=== PATIENT | male | born 1945 | race Caucasian/White ===

== ENCOUNTER 2023-01-27 11:56 | Inpatient (IN) | payer OTHER ==
[~2023-01-27] VITALS: Ht 180.3 cm; Wt 95.3 kg
[2023-01-27] MEDS ORDERED: KETOROLAC TROMETHAMINE 30 MG/ML VIAL ONE (12:25)
[2023-01-27] MEDS ORDERED: SEVOFLURANE INHAL SOLN 250 ML PEN BTL ONE (12:25)
[2023-01-27] MEDS ORDERED: LIDOCAINE HCL 2% LOCAL INJ 5 ML SDV VIAL INJ ONE (12:25)
[2023-01-27] MEDS ORDERED: PROPOFOL IV EMULSION 10 MG/ML 20 ML VIAL ONE (12:25)
[2023-01-27] MEDS ORDERED: ONDANSETRON HCL INJ 2MG/ML 2ML 2 MG/ML VIAL ONE (12:25)
[2023-01-27] MEDS ORDERED: POVIDONE IODINE 0.05% 0.05 % ML PO ONE (12:25)
[2023-01-27] MEDS ORDERED: ONDANSETRON HCL INJ 2MG/ML 2ML 2 MG/ML VIAL IV STA (12:30)
[2023-01-27] MEDS ORDERED: Morphine 4mg INJECTION 4 MG/ML INJ IV ONE (12:30)
[2023-01-27] MEDS ORDERED: FENTANYL CITRATE/PF 100MCG/2 ML INJ ONE (12:33)
[2023-01-27] MEDS ORDERED: MIDAZOLAM HCL 2 MG/2 ML VIAL ONE (12:33)
[2023-01-27 12:43] LABS: BASOPHILS % 0.1 % (0.0-1.0); HEMATOCRIT 41.8 % (38.2-49.6); LYMPHOCYTES # (AUTO) 0.6 (1.0-3.2); LYMPHOCYTES % 5.4 % (18.0-39.1); MEAN CORPUSCULAR HEMOGLOBIN 30.1 pg (28-32); MEAN CORPUSCULAR HGB CONC 33.5 g/dL (31-35); MEAN CORPUSCULAR VOLUME 89.9 fL (81-99); MONOCYTES # (AUTO) 0.8 (0.2-0.8); MONOCYTES % 7.1 % (4.4-11.3); NEUTROPHILS # (AUTO) 10.2 (2.1-6.9); NEUTROPHILS % 86.9 % (38.7-80.0); PLATELET COUNT 223 x10e3/uL (140-360); RED BLOOD COUNT 4.65 x10e6/uL (4.3-5.7); RED CELL DISTRIBUTION WIDTH 14.6 % (11.7-14.4)
[2023-01-27 13:02] LABS: INR 1.01; PROTHROMBIN TIME 13.8 seconds (11.9-14.5)
[2023-01-27 13:03] LABS: PARTIAL THROMBOPLASTIN TIME 27.6 seconds (23.8-35.5)
[2023-01-27 13:12] LABS: ALBUMIN 3.9 g/dL (3.5-5.0); ANION GAP 16.5 mmol/L (8-16); CALCIUM 9.8 mg/dL (8.4-10.2); CREATININE, SERUM 1.02 mg/dL (0.72-1.25); POTASSIUM 3.5 mmol/L (3.5-5.1)
[2023-01-27 13:32] LABS: BODY FLUID APPEARANCE CLOUDY; BODY FLUID COLOR YELLOW; BODY FLUID TYPE SYNOVIAL
[2023-01-27 13:35] LABS: RBC,BODY FLUID 21000 cells/uL; WBC,BODY FLUID 73615 cells/uL
[2023-01-27 14:44] LABS: LYMPHOCYTES,BODY FLUID 5 %; MONO/MACROPHG,BODY FLUID 7 %; NEUTROPHILS,BODY FLUID 88 %
[2023-01-27] MEDS ORDERED: Vancomycin IV 1 GM VIAL ONE (16:56)
[2023-01-27] MEDS: SODIUM CHLORIDE 0.9% 1000ML 1,000 ML IV SCH (18:38)
[2023-01-27 20:00] VITALS: BP 161/84; PULSE 120; RESP 20; TEMP 102.6; O2SAT 99
[2023-01-27] MEDS ORDERED: METFORMIN HCL500 MG PO (20:10)
[2023-01-27] MEDS ORDERED: MELOXICAM7.5 MG PO (20:11)
[2023-01-27] MEDS ORDERED: PRAVASTATIN SOD40 MG (20:11)
[2023-01-27 20:35] VITALS: BP 161/84; PULSE 120; RESP 20; TEMP 102.6; O2SAT 99
[2023-01-27] MEDS ORDERED: HYDROCODONE/APAP 5MG-325MG TAB PO PRN (23:30)
[2023-01-27] MEDS ORDERED: Vancomycin IV 1 GM in SODIUM CHLORIDE 0.9% 250ML 250 ML IV SCH (23:30)
[2023-01-27] MEDS ORDERED: D5.45%NS/KCL 20MEQ 1,000 ML IV SCH (23:30)
[2023-01-27 23:46] LABS: BODY FLUID TYPE SYNOVIAL
[2023-01-27 23:47] LABS: BODY FLUID APPEARANCE TURBID; BODY FLUID COLOR RED; RBC,BODY FLUID 120000 cells/uL; WBC,BODY FLUID 132863 cells/uL
[2023-01-28] VITALS (12 sets, daily range): BP systolic 119–154; BP diastolic 15–90; PULSE 65–111; RESP 16–20; TEMP 97.9–102; O2SAT 96–100
[2023-01-28 00:31] LABS: LYMPHOCYTES,BODY FLUID 3 %; NEUTROPHILS,BODY FLUID 88 %
[2023-01-28 00:40] LABS: MONO/MACROPHG,BODY FLUID 9 %
[2023-01-28] MEDS ORDERED: HYDRALAZINE HCL 20 MG/ML VIAL IV PRN (01:00)
[2023-01-28] MEDS ORDERED: SIMETHICONE 80 MG CHEW PO PRN (01:00)
[2023-01-28] MEDS ORDERED: LIDOCAINE 4% PATCH TP PRN (01:00)
[2023-01-28] MEDS ORDERED: POTASSIUM CHLORIDE 20 MEQ TAB CR PO PRN (01:00)
[2023-01-28] MEDS ORDERED: BENZONATATE 100 MG CAP PO PRN (01:00)
[2023-01-28] MEDS ORDERED: DIPHENHYDRAMINE HCL 25 MG CAP PO PRN (01:00)
[2023-01-28] MEDS ORDERED: DEXTROSE 50% SYRINGE 50 ML IV PRN ×2 (01:00→01:15)
[2023-01-28] MEDS ORDERED: MELATONIN 5 MG TABLET PO PRN (01:00)
[2023-01-28] MEDS ORDERED: ALBUTEROL SULF 0.083% NEB SOLN 3 ML NEB NEB PRN (01:15)
[2023-01-28] MEDS ORDERED: IPRATROPIUM BROMIDE 0.02% 2.5 ML NEB NEB PRN (01:15)
[2023-01-28] MEDS: SODIUM CHLORIDE 0.9% 1000ML 1,000 ML IV SCH ×2 (01:20→07:30)
[2023-01-28] MEDS: Morphine 4mg INJECTION 4 MG/ML INJ IV PRN (01:20)
[2023-01-28] MEDS ORDERED: Vancomycin IV 1 GM in SODIUM CHLORIDE 0.9% 250ML 250 ML IV SCH (01:30)
[2023-01-28 06:50] LABS: BASOPHILS % 0.1 % (0.0-1.0); HEMATOCRIT 35.8 % (38.2-49.6); HEMOGLOBIN 11.7 g/dL (14.0-18.0); LYMPHOCYTES # (AUTO) 0.4 (1.0-3.2); LYMPHOCYTES % 2.8 % (18.0-39.1); MEAN CORPUSCULAR HGB CONC 32.7 g/dL (31-35); MEAN CORPUSCULAR VOLUME 91.8 fL (81-99); MONOCYTES # (AUTO) 0.5 (0.2-0.8); MONOCYTES % 3.8 % (4.4-11.3); NEUTROPHILS # (AUTO) 13.2 (2.1-6.9); NEUTROPHILS % 92.7 % (38.7-80.0); PLATELET COUNT 155 x10e3/uL (140-360); RED CELL DISTRIBUTION WIDTH 15.3 % (11.7-14.4)
[2023-01-28 07:26] LABS: ALBUMIN 2.9 g/dL (3.5-5.0); ALBUMIN/GLOBULIN RATIO 0.9 (0.8-2.0); ANION GAP 14.9 mmol/L (8-16); CALCIUM 8.4 mg/dL (8.4-10.2); CREATININE, SERUM 1.35 mg/dL (0.72-1.25); POTASSIUM 3.9 mmol/L (3.5-5.1)
[2023-01-28] MEDS: ONDANSETRON HCL INJ 2MG/ML 2ML 2 MG/ML VIAL IV PRN (07:53)
[2023-01-28] MEDS: INSULIN LISPRO 100 UNIT/1 ML 3ML VIAL SQ SCH ×4 (08:00→21:28)
[2023-01-28] MEDS: PANTOPRAZOLE SOD 40 MG TABEC PO SCH (08:22)
[2023-01-28 09:06] LABS: ANION GAP 15.1 mmol/L (8-16); CALCIUM 7.9 mg/dL (8.4-10.2); CREATININE, SERUM 1.34 mg/dL (0.72-1.25); POTASSIUM 4.1 mmol/L (3.5-5.1)
[2023-01-28] MEDS ORDERED: JANUVIA50 MG PO (09:26)
[2023-01-28] MEDS ORDERED: LOTREL 5-20 MG1 EACH PO (09:33)
[2023-01-28] MEDS ORDERED: VITAMIN E400 UNI1 PO (09:36)
[2023-01-28] MEDS ORDERED: DOCUSATE SODIU100 MG PO (09:36)
[2023-01-28] MEDS: HYDROCODONE/APAP 7.5MG-325MG 1 EA TAB PO PRN ×3 (11:01→22:06)
[2023-01-28] MEDS: ACETAMINOPHEN 325 MG TAB PO PRN ×2 (12:36→17:46)
[2023-01-28] MEDS: Vancomycin IV 1 GM in SODIUM CHLORIDE 0.9% 250ML 250 ML IV SCH (13:31)
[2023-01-28] MEDS: RIVAROXABAN 10 MG TABLET PO SCH (17:46)
[2023-01-28] MEDS: AMLODIPINE BESYLATE PO SCH (21:00)
[2023-01-28] MEDS: [UNRECOGNIZED DRUG - OTHER] PO SCH (21:00)
[2023-01-28] MEDS: BENAZEPRIL PO SCH (21:00)
[2023-01-28] MEDS: INSULIN GLARGINE 100 UNITS/ML VIAL SQ SCH (21:28)
[2023-01-28] MEDS ORDERED: ACETAMINOPHEN 1000 MG/100 ML IV PRN (23:30)
[2023-01-29] VITALS (9 sets, daily range): BP systolic 136–173; BP diastolic 72–88; PULSE 91–117; RESP 18–22; TEMP 97.7–100.2; O2SAT 93–100
[2023-01-29] MEDS: Vancomycin IV 1 GM in SODIUM CHLORIDE 0.9% 250ML 250 ML IV SCH (01:30)
[2023-01-29] MEDS: HYDROCODONE/APAP 7.5MG-325MG 1 EA TAB PO PRN ×4 (01:55→17:40)
[2023-01-29] MEDS: ONDANSETRON HCL INJ 2MG/ML 2ML 2 MG/ML VIAL IV PRN (01:59)
[2023-01-29] MEDS: ACETAMINOPHEN 325 MG TAB PO PRN ×3 (04:05→21:39)
[2023-01-29 05:33] LABS: BASOPHILS % 0.2 % (0.0-1.0); HEMATOCRIT 32.2 % (38.2-49.6); HEMOGLOBIN 10.6 g/dL (14.0-18.0); LYMPHOCYTES # (AUTO) 0.4 (1.0-3.2); LYMPHOCYTES % 8.5 % (18.0-39.1); MEAN CORPUSCULAR HGB CONC 32.9 g/dL (31-35); MEAN CORPUSCULAR VOLUME 91.2 fL (81-99); MONOCYTES # (AUTO) 0.3 (0.2-0.8); MONOCYTES % 5.5 % (4.4-11.3); NEUTROPHILS % 85.4 % (38.7-80.0); PLATELET COUNT 143 x10e3/uL (140-360); RED BLOOD COUNT 3.53 x10e6/uL (4.3-5.7); RED CELL DISTRIBUTION WIDTH 14.8 % (11.7-14.4)
[2023-01-29 05:54] LABS: ANION GAP 11.6 mmol/L (8-16); CREATININE, SERUM 0.87 mg/dL (0.72-1.25); POTASSIUM 3.6 mmol/L (3.5-5.1)
[2023-01-29 06:08] LABS: CALCIUM 8.2 mg/dL (8.4-10.2)
[2023-01-29] MEDS: INSULIN LISPRO 100 UNIT/1 ML 3ML VIAL SQ SCH ×4 (08:30→21:18)
[2023-01-29] MEDS: PANTOPRAZOLE SOD 40 MG TABEC PO SCH (08:30)
[2023-01-29] MEDS: RIVAROXABAN 10 MG TABLET PO SCH (17:40)
[2023-01-29] MEDS: CEFAZOLIN SODIUM 2 GM in SODIUM CHLORIDE 0.9% 100 ML IV SCH ×2 (17:40→23:58)
[2023-01-29] MEDS: AMLODIPINE BESYLATE PO SCH (21:00)
[2023-01-29] MEDS: [UNRECOGNIZED DRUG - OTHER] PO SCH (21:00)
[2023-01-29] MEDS: BENAZEPRIL PO SCH (21:00)
[2023-01-29] MEDS: INSULIN GLARGINE 100 UNITS/ML VIAL SQ SCH (21:00)
[2023-01-30] VITALS (10 sets, daily range): BP systolic 121–145; BP diastolic 68–81; PULSE 81–97; RESP 17–20; TEMP 96.8–98.4; O2SAT 97–100
[2023-01-30] MEDS: HYDROCODONE/APAP 7.5MG-325MG 1 EA TAB PO PRN ×4 (01:04→22:15)
[2023-01-30 05:09] LABS: BASOPHILS % 0.5 % (0.0-1.0); HEMATOCRIT 34.6 % (38.2-49.6); HEMOGLOBIN 11.1 g/dL (14.0-18.0); LYMPHOCYTES # (AUTO) 0.5 (1.0-3.2); LYMPHOCYTES % 12.6 % (18.0-39.1); MEAN CORPUSCULAR HGB CONC 32.1 g/dL (31-35); MEAN CORPUSCULAR VOLUME 93.5 fL (81-99); MONOCYTES # (AUTO) 0.4 (0.2-0.8); MONOCYTES % 8.5 % (4.4-11.3); NEUTROPHILS # (AUTO) 3.3 (2.1-6.9); NEUTROPHILS % 77.7 % (38.7-80.0); PLATELET COUNT 141 x10e3/uL (140-360); RED CELL DISTRIBUTION WIDTH 14.6 % (11.7-14.4)
[2023-01-30] MEDS: CEFAZOLIN SODIUM 2 GM in SODIUM CHLORIDE 0.9% 100 ML IV SCH ×4 (05:12→23:47)
[2023-01-30 05:30] LABS: ANION GAP 12.4 mmol/L (8-16); CALCIUM 8.3 mg/dL (8.4-10.2); CREATININE, SERUM 0.79 mg/dL (0.72-1.25); POTASSIUM 3.4 mmol/L (3.5-5.1)
[2023-01-30] MEDS: PANTOPRAZOLE SOD 40 MG TABEC PO SCH (09:29)
[2023-01-30] MEDS: INSULIN LISPRO 100 UNIT/1 ML 3ML VIAL SQ SCH ×4 (09:33→22:07)
[2023-01-30] MEDS: KETOROLAC TROMETHAMINE 30 MG/ML VIAL IV SCH ×2 (13:26→17:46)
[2023-01-30] MEDS ORDERED: ONDANSETRON HCL 4 MG ORAL DISINTEGRATING TAB PO PRN (13:45)
[2023-01-30] MEDS: RIVAROXABAN 10 MG TABLET PO SCH (16:39)
[2023-01-30] MEDS: BENAZEPRIL PO SCH (21:00)
[2023-01-30] MEDS: AMLODIPINE BESYLATE PO SCH (21:00)
[2023-01-30] MEDS: INSULIN GLARGINE 100 UNITS/ML VIAL SQ SCH (21:00)
[2023-01-30] MEDS: [UNRECOGNIZED DRUG - OTHER] PO SCH (21:00)
[2023-01-30 21:03] LABS: INR 1.86; PROTHROMBIN TIME 21.9 seconds (11.9-14.5)
[2023-01-30 21:04] LABS: PARTIAL THROMBOPLASTIN TIME 48.2 seconds (23.8-35.5)
[2023-01-31] VITALS (10 sets, daily range): BP systolic 129–156; BP diastolic 70–86; PULSE 77–102; RESP 16–23; TEMP 97.1–98.6; O2SAT 96–99
[2023-01-31] MEDS: KETOROLAC TROMETHAMINE 30 MG/ML VIAL IV SCH ×2 (00:06→05:01)
[2023-01-31] MEDS: CEFAZOLIN SODIUM 2 GM in SODIUM CHLORIDE 0.9% 100 ML IV SCH ×3 (05:01→17:49)
[2023-01-31] MEDS: INSULIN LISPRO 100 UNIT/1 ML 3ML VIAL SQ SCH ×4 (07:30→21:42)
[2023-01-31] MEDS: PANTOPRAZOLE SOD 40 MG TABEC PO SCH (07:30)
[2023-01-31] MEDS: SITAGLIPTIN 100 MG TAB PO SCH (08:04)
[2023-01-31 08:36] LABS: ANION GAP 13.4 mmol/L (8-16); CALCIUM 8.5 mg/dL (8.4-10.2); CREATININE, SERUM 0.76 mg/dL (0.72-1.25); POTASSIUM 3.4 mmol/L (3.5-5.1)
[2023-01-31] MEDS ORDERED: Vancomycin IV 1 GM VIAL ONE ×2 (10:37→11:39)
[2023-01-31] MEDS: Morphine 4mg INJECTION 4 MG/ML INJ IV PRN ×2 (11:02→21:31)
[2023-01-31] MEDS ORDERED: LIDOCAINE HCL 2% LOCAL INJ 5 ML SDV VIAL INJ ONE (12:48)
[2023-01-31] MEDS ORDERED: SEVOFLURANE INHAL SOLN 250 ML PEN BTL ONE (12:48)
[2023-01-31] MEDS ORDERED: LABETALOL HCL 5 MG/ML 20ML VIAL ONE (12:48)
[2023-01-31] MEDS ORDERED: ONDANSETRON HCL INJ 2MG/ML 2ML 2 MG/ML VIAL ONE (12:48)
[2023-01-31] MEDS ORDERED: PROPOFOL IV EMULSION 10 MG/ML 20 ML VIAL ONE (12:48)
[2023-01-31] MEDS ORDERED: KETOROLAC TROMETHAMINE 30 MG/ML VIAL ONE (12:48)
[2023-01-31] MEDS ORDERED: POVIDONE IODINE 0.05% 0.05 % ML PO ONE (12:48)
[2023-01-31] MEDS ORDERED: FENTANYL CITRATE/PF 100MCG/2 ML INJ ONE (13:14)
[2023-01-31] MEDS: FENTANYL CITRATE/PF 100MCG/2 ML INJ ONE ×2 (13:40→13:48)
[2023-01-31] MEDS: [UNRECOGNIZED DRUG - OTHER] PO SCH (21:00)
[2023-01-31] MEDS: BENAZEPRIL PO SCH (21:00)
[2023-01-31] MEDS: AMLODIPINE BESYLATE PO SCH (21:00)
[2023-01-31] MEDS: INSULIN GLARGINE 100 UNITS/ML VIAL SQ SCH (21:40)
[2023-02-01] VITALS (9 sets, daily range): BP systolic 135–152; BP diastolic 72–94; PULSE 95–113; RESP 16–19; TEMP 97.1–98.4; O2SAT 94–98
[2023-02-01] MEDS: HYDROCODONE/APAP 7.5MG-325MG 1 EA TAB PO PRN ×2 (00:01→04:26)
[2023-02-01] MEDS: CEFAZOLIN SODIUM 2 GM in SODIUM CHLORIDE 0.9% 100 ML IV SCH ×5 (00:02→23:53)
[2023-02-01] MEDS: Morphine 4mg INJECTION 4 MG/ML INJ IV PRN ×3 (02:30→20:22)
[2023-02-01 07:19] LABS: BASOPHILS % 0.3 % (0.0-1.0); EOSINOPHILS % 0.1 % (0.0-6.0); HEMATOCRIT 31.1 % (38.2-49.6); HEMOGLOBIN 10.2 g/dL (14.0-18.0); LYMPHOCYTES # (AUTO) 1.2 (1.0-3.2); LYMPHOCYTES % 17.7 % (18.0-39.1); MEAN CORPUSCULAR HEMOGLOBIN 29.6 pg (28-32); MEAN CORPUSCULAR HGB CONC 32.8 g/dL (31-35); MEAN CORPUSCULAR VOLUME 90.1 fL (81-99); MONOCYTES # (AUTO) 0.4 (0.2-0.8); MONOCYTES % 6.3 % (4.4-11.3); NEUTROPHILS # (AUTO) 5.1 (2.1-6.9); NEUTROPHILS % 74.3 % (38.7-80.0); PLATELET COUNT 228 x10e3/uL (140-360); RED BLOOD COUNT 3.45 x10e6/uL (4.3-5.7); RED CELL DISTRIBUTION WIDTH 14.5 % (11.7-14.4)
[2023-02-01] MEDS: INSULIN LISPRO 100 UNIT/1 ML 3ML VIAL SQ SCH ×4 (07:30→20:30)
[2023-02-01 07:45] LABS: ANION GAP 14.2 mmol/L (8-16); CALCIUM 8.1 mg/dL (8.4-10.2); CREATININE, SERUM 0.69 mg/dL (0.72-1.25); POTASSIUM 3.2 mmol/L (3.5-5.1)
[2023-02-01] MEDS: SITAGLIPTIN 100 MG TAB PO SCH (08:17)
[2023-02-01] MEDS: PANTOPRAZOLE SOD 40 MG TABEC PO SCH (08:17)
[2023-02-01] MEDS ORDERED: METOPROLOL TARTRATE INJ 1 MG/ML VIAL IV ONE (08:30)
[2023-02-01] MEDS ORDERED: SODIUM CHLORIDE 0.9% 1000ML 1,000 ML IV ONE (08:30)
[2023-02-01] MEDS ORDERED: POTASSIUM CHLORIDE 20 MEQ TAB CR PO STA (08:39)
[2023-02-01] MEDS ORDERED: APIXABAN 5 MG TABLET PO SCH (09:00)
[2023-02-01] MEDS ORDERED: AMIODARONE HCL 200 MG TAB PO SCH (09:45)
[2023-02-01] MEDS: DOCUSATE SODIUM 100 MG CAP PO PRN (10:05)
[2023-02-01 11:30] LABS: BAND NEUTROPHILS % (MANUAL) 2 %; LYMPHOCYTES % (MANUAL) 20 % (19-48); MONOCYTES % (MANUAL) 4 % (3.4-9.0); NEUTROPHILS % (MANUAL) 72 % (40-74); NUCLEATED RED BLOOD CELLS 2
[2023-02-01 11:31] LABS: PLATELET ESTIMATE ADEQUATE; PLATELET MORPHOLOGY COMMENT NORMAL
[2023-02-01] MEDS: METOPROLOL TARTRATE 50 MG TAB PO SCH ×3 (12:22→22:07)
[2023-02-01 13:13] LABS: BASOPHILS % 0.1 % (0.0-1.0); HEMATOCRIT 33.8 % (38.2-49.6); LYMPHOCYTES # (AUTO) 1.3 (1.0-3.2); LYMPHOCYTES % 18.4 % (18.0-39.1); MEAN CORPUSCULAR HEMOGLOBIN 29.6 pg (28-32); MEAN CORPUSCULAR HGB CONC 32.5 g/dL (31-35); MEAN CORPUSCULAR VOLUME 91.1 fL (81-99); MONOCYTES # (AUTO) 0.3 (0.2-0.8); MONOCYTES % 4.6 % (4.4-11.3); NEUTROPHILS # (AUTO) 5.3 (2.1-6.9); NEUTROPHILS % 75.9 % (38.7-80.0); PLATELET COUNT 238 x10e3/uL (140-360); RED BLOOD COUNT 3.71 x10e6/uL (4.3-5.7); RED CELL DISTRIBUTION WIDTH 14.6 % (11.7-14.4)
[2023-02-01 13:35] LABS: ALBUMIN/GLOBULIN RATIO 0.5 (0.8-2.0); ANION GAP 13.8 mmol/L (8-16); CALCIUM 8.4 mg/dL (8.4-10.2); CREATININE, SERUM 0.87 mg/dL (0.72-1.25); POTASSIUM 3.8 mmol/L (3.5-5.1)
[2023-02-01] MEDS: AMIODARONE HCL 200 MG TAB PO SCH (17:59)
[2023-02-01] MEDS: ENOXAPARIN INJ 80 MG/0.8 ML SYR SC SCH (20:21)
[2023-02-01] MEDS: INSULIN GLARGINE 100 UNITS/ML VIAL SQ SCH (20:31)
[2023-02-02] VITALS (9 sets, daily range): BP systolic 127–167; BP diastolic 76–82; PULSE 82–94; RESP 16–20; TEMP 97.2–99; O2SAT 92–97
[2023-02-02] MEDS: Morphine 4mg INJECTION 4 MG/ML INJ IV PRN ×2 (00:24→03:55)
[2023-02-02] MEDS: AMIODARONE HCL 200 MG TAB PO SCH ×4 (01:13→21:23)
[2023-02-02 05:03] LABS: BASOPHILS % 0.5 % (0.0-1.0); EOSINOPHILS % 0.1 % (0.0-6.0); HEMATOCRIT 30.8 % (38.2-49.6); HEMOGLOBIN 10.1 g/dL (14.0-18.0); LYMPHOCYTES # (AUTO) 1.5 (1.0-3.2); LYMPHOCYTES % 18.5 % (18.0-39.1); MEAN CORPUSCULAR HGB CONC 32.8 g/dL (31-35); MEAN CORPUSCULAR VOLUME 91.4 fL (81-99); MONOCYTES # (AUTO) 0.5 (0.2-0.8); NEUTROPHILS # (AUTO) 5.7 (2.1-6.9); NEUTROPHILS % 70.5 % (38.7-80.0); PLATELET COUNT 298 x10e3/uL (140-360); RED BLOOD COUNT 3.37 x10e6/uL (4.3-5.7); RED CELL DISTRIBUTION WIDTH 14.6 % (11.7-14.4)
[2023-02-02 05:29] LABS: ALBUMIN 1.9 g/dL (3.5-5.0); ALBUMIN/GLOBULIN RATIO 0.5 (0.8-2.0); ANION GAP 13.6 mmol/L (8-16); CALCIUM 8.2 mg/dL (8.4-10.2); CREATININE, SERUM 0.74 mg/dL (0.72-1.25); POTASSIUM 3.6 mmol/L (3.5-5.1)
[2023-02-02] MEDS: CEFAZOLIN SODIUM 2 GM in SODIUM CHLORIDE 0.9% 100 ML IV SCH ×3 (06:05→18:13)
[2023-02-02] MEDS: METOPROLOL TARTRATE 50 MG TAB PO SCH ×2 (06:14→18:14)
[2023-02-02 06:29] LABS: THYROID STIMULATING HORMONE 0.632 uIU/mL (0.350-4.940)
[2023-02-02] MEDS: PANTOPRAZOLE SOD 40 MG TABEC PO SCH (09:03)
[2023-02-02] MEDS: SITAGLIPTIN 100 MG TAB PO SCH (09:03)
[2023-02-02] MEDS: ENOXAPARIN INJ 80 MG/0.8 ML SYR SC SCH ×2 (09:03→21:22)
[2023-02-02] MEDS: DOCUSATE SODIUM 100 MG CAP PO PRN (09:03)
[2023-02-02] MEDS: INSULIN LISPRO 100 UNIT/1 ML 3ML VIAL SQ SCH ×4 (09:33→21:24)
[2023-02-02] MEDS ORDERED: IOPAMIDOL 370 MG/ML 100 ML INFUS..BTL INJ ONE (12:07)
[2023-02-02] MEDS: INSULIN GLARGINE 100 UNITS/ML VIAL SQ SCH (21:25)
[2023-02-03] MEDS: CEFAZOLIN SODIUM 2 GM in SODIUM CHLORIDE 0.9% 100 ML IV SCH ×3 (00:07→12:09)
[2023-02-03 02:39] VITALS: BP 138/54; PULSE 80; RESP 16; TEMP 97.5; O2SAT 96
[2023-02-03 05:05] LABS: BASOPHILS % 0.4 % (0.0-1.0); EOSINOPHILS % 0.2 % (0.0-6.0); HEMATOCRIT 31.1 % (38.2-49.6); HEMOGLOBIN 10.4 g/dL (14.0-18.0); LYMPHOCYTES # (AUTO) 1.5 (1.0-3.2); LYMPHOCYTES % 17.8 % (18.0-39.1); MEAN CORPUSCULAR HGB CONC 33.4 g/dL (31-35); MEAN CORPUSCULAR VOLUME 89.6 fL (81-99); MONOCYTES # (AUTO) 0.5 (0.2-0.8); MONOCYTES % 5.4 % (4.4-11.3); NEUTROPHILS # (AUTO) 6.1 (2.1-6.9); NEUTROPHILS % 71.7 % (38.7-80.0); PLATELET COUNT 230 x10e3/uL (140-360); RED BLOOD COUNT 3.47 x10e6/uL (4.3-5.7); RED CELL DISTRIBUTION WIDTH 14.7 % (11.7-14.4)
[2023-02-03 05:28] LABS: ALBUMIN 1.8 g/dL (3.5-5.0); ALBUMIN/GLOBULIN RATIO 0.4 (0.8-2.0); ANION GAP 12.5 mmol/L (8-16); CALCIUM 8.2 mg/dL (8.4-10.2); CREATININE, SERUM 0.71 mg/dL (0.72-1.25); POTASSIUM 3.5 mmol/L (3.5-5.1)
[2023-02-03] MEDS: AMIODARONE HCL 200 MG TAB PO SCH ×2 (05:34→12:09)
[2023-02-03 05:38] VITALS: BP 119/73; PULSE 84; RESP 16; TEMP 97.1; O2SAT 93
[2023-02-03 08:11] VITALS: BP 160/73; PULSE 87; RESP 22; TEMP 98.2; O2SAT 96
[2023-02-03 08:18] VITALS: BP 160/73; PULSE 87; RESP 22; TEMP 98.2; O2SAT 96
[2023-02-03] MEDS: PANTOPRAZOLE SOD 40 MG TABEC PO SCH (09:02)
[2023-02-03] MEDS: ENOXAPARIN INJ 80 MG/0.8 ML SYR SC SCH (09:03)
[2023-02-03] MEDS: METOPROLOL TARTRATE 50 MG TAB PO SCH (09:03)
[2023-02-03] MEDS: SITAGLIPTIN 100 MG TAB PO SCH (09:03)
[2023-02-03] MEDS: INSULIN LISPRO 100 UNIT/1 ML 3ML VIAL SQ SCH ×2 (09:04→12:21)
[2023-02-03] MEDS: DOCUSATE SODIUM 100 MG CAP PO PRN (09:16)
[2023-02-03] MEDS ORDERED: SODIUM CHLORIDE 0.9% 250ML 250 ML ONE (11:33)
[2023-02-03 12:00] VITALS: BP 129/71; PULSE 86; RESP 20; TEMP 98.4; O2SAT 99
== END 2023-02-03 15:35 | disposition left against medical advice (07) | DRG 854 ==
LOC: ER 12:05 → ERHOLD 14:54 → MED/SURG 18:42
PROVIDERS: ADMIT Internal Medicine; ATTEND Internal Medicine
PROC: 0SBD4ZZ Excision of Left Knee Joint, Percutaneous Endoscopic Approach (ICD-10-PCS; principal; 2023-01-27 22:22)
PROC: 3E0U329 Introduction of Other Anti-infective into Joints, Percutaneous Approach (ICD-10-PCS; 2023-01-31)
PROC: 0SBD4ZZ Excision of Left Knee Joint, Percutaneous Endoscopic Approach (ICD-10-PCS; 2023-01-31 11:53)
DX: A41.01 Sepsis due to Methicillin susceptible Staphylococcus aureus (principal); L03.116 Cellulitis of left lower limb; M00.062 Staphylococcal arthritis, left knee; I10 Essential (primary) hypertension; E11.9 Type 2 diabetes mellitus without complications; I48.91 Unspecified atrial fibrillation; S83.282A Other tear of lateral meniscus, current injury, left knee, initial encounter; S83.242A Other tear of medial meniscus, current injury, left knee, initial encounter; M94.262 Chondromalacia, left knee; M65.9 Synovitis and tenosynovitis, unspecified; M19.90 Unspecified osteoarthritis, unspecified site; E78.00 Pure hypercholesterolemia, unspecified; I25.10 Atherosclerotic heart disease of native coronary artery without angina pectoris; Z20.822 Contact with and (suspected) exposure to COVID-19; Z85.46 Personal history of malignant neoplasm of prostate; Z79.4 Long term (current) use of insulin; Z53.21 Procedure and treatment not carried out due to patient leaving prior to being seen by health care provider; Z79.84 Long term (current) use of oral hypoglycemic drugs
CPT/HCPCS: 36415; 71045; 71260; 74177; 80048; 80053; 82945; 82948; 83036; 84443; 84550; 85025; 85610; 85730; 86140; 86850; 86900; 87040; 87070; 87071; 87075; 87186; 87205; 88112; 88300; 88305; 89051; 89060; 93005; 93306; 94799; 96372; 99284; C1713; J0690; J0692; J1650; J1815; J1885; J2001; J2250; J2270; J2405; J7030; J7050; Q9967